=== PATIENT | female | born 1940 | race Asian ===

== ENCOUNTER 2019-07-04 11:17 | Emergency (ER) | payer MEDICARE, OTHER, SELFPAY ==
[2019-07-04 11:18] VITALS: BP 149/71; PULSE 88; RESP 16; TEMP 36.1; O2SAT 98; BMI 20.2
--- NOTE | 2019-07-04 11:54 | MRI_ITS ---
We are attempting to reach an attending provider to discuss findings. An addendum with communication details will be sent when the communication is complete. STUDY: MRI CERVICAL SPINE WITHOUT CONTRAST REASON FOR EXAM: Female, 78 years old. Neck pain. Arm pain. TECHNIQUE: Standardized fat and water weighted pulse sequences were obtained in the sagittal and axial planes. COMPARISON: None. FINDINGS: Moderate/severe craniocervical junction stenosis. Craniocervical junction measures approximately 6 mm in transverse diameter (sagittal image 9 series 2). Degenerative intact atlantoaxial and craniocervical junction. Odontoid intact. No acute fracture line. No dislocation. No cortical destruction. Cervical straightening. No significant scoliosis. Focal abnormal T2 cord signal behind the fused C5/6 vertebral bodies measuring approximately 7 mm in length (sagittal image 8 series 2). No additional regions of abnormal cord signal. Anterior surgical fusion extending from the C5-C7 vertebral bodies. Multilevel discectomy. Mild/moderate diffuse facet joint arthrosis. C2-3: Facet joint arthrosis. Severe left neural foraminal narrowing. Normal central canal. Normal right neural foramina. Shallow disc bulge. C3-4: Mild endplate spondylosis. Shallow disc bulge. Severe right and moderate left neural foramina narrowing. Minimal central canal narrowing. C4-5: Mild end plate spondylosis. Severe bilateral neural foramina narrowing. Disc bulge with moderate central canal narrowing. C5-6: Fused endplates. Mild posterior osseous ridging. Mild central canal narrowing. Moderate left and mild right neural from narrowing. C6-7: Fused endplates. Mild posterior osteophytic ridging. Mild central canal narrowing. Mild/moderate bilateral neural femoral narrowing. C7-T1: Shallow disc bulge. Minimal central canal narrowing. Moderate right and mild left neural femoral narrowing. Minimal grade 1 spondylolisthesis. Mild paraspinal muscle atrophy. Normal thyroid. Symmetric vascular flow voids. MRI/Spine Cervical (Routine) IMPRESSION: Focal C5-6 abnormal T2 cord signal (statistically myelomalacia; correlate prior imaging) Multilevel intervertebral disc disease with central canal narrowing predominating at C4-5 Moderate/severe craniocervical junction stenosis Multilevel moderate/severe neural femoral narrowing Cervical straightening with mild/moderate osteoarthritis and cervical fusion Electronically Signed: Clint Sargent DO at 15:44 EDT Tel , Service support ,
--- NOTE | 2019-07-04 11:56 | ED.VIS.GEN ---
History of Present Illness Chief Complaint: Other, Pain/Inj Detail of Chief Complaint: weakness/numbness Informant: Patient Onset: Weeks - 2 Context: Gradual Onset - And continuing to worsen Timing: Continuous Quality: Weakness Location: Arms and legs, worse on the left Current Severity: Moderate Maximum Severity: Moderate Worsened by: nothing Relieved by: nothing Associated Symptoms: Numbness left arm and left leg Narrative: No facial symptoms. Patient states she had an MRI 2 or 3 years ago that showed spinal cord compression in the C3-4 area, she is concerned that is worsening and is unable to get an MRI in a timely fashion, she feels like her weakness is worsening so she felt she had no choice but to come to the emergency department. She has had one fall without injury as a result of this in the last 2 weeks. She denies any neck or back pain, no recent injuries. She had a fusion in the C7-T1 area remotely. - Past Medical History (1) Hypertension Status: Chronic (2) Depression Status: Chronic Past Medical History - Allergies and Home Meds Allergies/Adverse Reactions: Allergies No Known Allergies Allergy (Verified 01/17/15 15:52) Primary Care Physician: Nina You MD [STAFF PHYSICIAN] - Doctors: Neurosurgery [facility] main Surgical History: - - Cervical spine fusion Lives: Spouse/ Significant Other Smoking Status: Former smoker Review of Systems General: Denies: Chills, Fever, Sweats Eyes: Denies: Visual changes - bilaterally, Diplopia ENT: Denies: Rhinorrhea, Sore throat Cardiovascular: Denies: Chest pain, Palpitations Respiratory: Denies: Dyspnea, Cough, Dyspnea on exertion Gastrointestinal: Denies: Abdominal pain, Nausea, Vomiting, Diarrhea, Melena, Hematochezia Genitourinary: Denies: Dysuria, Hematuria, Frequency Musculoskeletal: Denies: Neck pain, Back pain, Extremity Pain Skin: Denies: Rash, Wounds Neurological: Reports: Weakness, Numbness. Denies: Headache Physical Exam Vital Signs/Narrative: Vital Signs Temp Pulse Resp BP Pulse Ox 07/04/19 11:18 97 F L 88 16 149/71 H 98 Inital Vital Signs reviewed: Yes General: Well nourished, Well developed, No Acute Distress Head: Normocephalic, Atraumatic Eyes: Perrl, EOMI ENT: Moist mucous membranes, No rhinorrhea Neck: Supple, Nontender Cardiovascular: Regular rate, Regular rhythm, Murmur - 2/6 systolic Respiratory: No distress, CTA bilaterally, Chest nontender Abdomen: Soft, Nontender, Nondistended, Normal bowel sounds Back: Nontender, Normal Inspection. Negative for: CVA tenderness Extremities: Nontender, No edema Skin: Normal color, No rash, No Trauma Neurological: Alert, Oriented x3, Cranial nerves II-XII grossly intact, Normal DTR - No clonus. Toes downgoing bilaterally., Parasthesia - Left arm and left leg all the sensation intact, Weakness - 4+/5 strength right upper and right lower extremity, throughout all muscle groups. 4/5 strength throughout left upper and left lower extremity all muscle groups. Psychological: Normal affect, Tearful Diagnostic/Tx/Re-eval Clinical Impression(s) from Imaging Studies Cervical Spine MRI 07/04/19 11:54 IMPRESSION: Focal C5-6 abnormal T2 cord signal (statistically myelomalacia; correlate prior imaging) Multilevel intervertebral disc disease with central canal narrowing predominating at C4-5 Moderate/severe craniocervical junction stenosis Multilevel moderate/severe neural femoral narrowing Cervical straightening with mild/moderate osteoarthritis and cervical fusion Electronically Signed: Clint Sargent DO at 15:44 EDT Tel , Service support , - Medical Decision Making Concern here is for high-level cord compression given symptoms in all 4 extremities. She has had no respiratory symptoms. MRI is indicated, we were able to get it in the emergency department after a short observation period. It shows moderate-severe craniocervical junction stenosis, in addition to the other above findings. However, this is the most concerning finding, as if worse, could lead to paralysis and respiratory problems. At this time she is able to ambulate. I discussed with neurosurgery at [facility], where the patient was previously established and had prior imaging. They request that the patient be transferred to the emergency department at [facility] so that the neurosurgeon on-call can evaluate the patient clinically and review the imaging which we are not able to transmit electronically. Discussed with the patient and she is amenable to that plan. Accepted to the ED by Dr. Santillan ED Disposition - Plan for ED Patient: Disposition: [facility] - Main Diagnosis: Cervical stenosis of spinal canal, Weakness of both arms, Weakness of both legs Referrals: Nina You MD [STAFF PHYSICIAN] -
[2019-07-04 16:56] VITALS: BP 188/77; PULSE 85; RESP 16; O2SAT 99
[2019-07-04 18:30] VITALS: BP 188/77; PULSE 63; RESP 16; O2SAT 99
== END 2019-07-04 18:41 | disposition short-term general hospital (02) ==
PROVIDERS: Emergency Provider Emergency Medicine; Family Provider Family Medicine; PCP Family Medicine
DX: M48.02 Spinal stenosis, cervical region (principal); R53.1 Weakness; I10 Essential (primary) hypertension; F32.9 Major depressive disorder, single episode, unspecified; Z79.899 Other long term (current) drug therapy; Z87.891 Personal history of nicotine dependence
CPT/HCPCS: 72141; 99283; J7030

== ENCOUNTER 2019-08-06 19:17 | Inpatient (IN) | payer MEDICARE, OTHER, SELFPAY ==
[2019-08-06 19:20] VITALS: BP 124/62; PULSE 83; RESP 16; O2SAT 98
[2019-08-06 19:21] VITALS: BP 124/62; PULSE 86; RESP 16; TEMP 36.8; O2SAT 98; BMI 21.2
--- NOTE | 2019-08-06 20:31 | RAD_ITS ---
STUDY: X-RAY CHEST REASON FOR EXAM: Female, 79 years old. Injury TECHNIQUE: Single AP portable view of the chest. COMPARISON: February 06, 2016 FINDINGS: There is postoperative change of the cervical spine. There are skin lionel in the lower neck. There are monitoring devices. The lungs are clear and expanded. There is no demonstrated pleural abnormality. Normal size heart. Normal mediastinum and glory. Normal visualized pulmonary arteries. Normal visualized aortic arch and descending thoracic aorta. There is demineralization of the osseous structures. Normal visualized ribs, clavicles, and shoulders. There is no demonstrated abnormality of the visualized soft tissue structures of the upper abdomen. RAD/Chest 1 View (Portable) IMPRESSION: Degenerative changes, as described above. No demonstrated acute cardiopulmonary process. Electronically Signed: Joseluis Rolon MD at 20:52 EDT , Service support ,
--- NOTE | 2019-08-06 20:31 | CT_ITS ---
STUDY: CT BRAIN WITHOUT CONTRAST REASON FOR EXAM: Female, 79 years old. Fall hitting head. Patient passed out. Recent cervical spine surgery. RADIATION DOSAGE (If Supplied By Facility): CTDIvol = ( 44.99 ) mGy, DLP = ( 762.36 ) mGycm TECHNIQUE: Transaxial CT imaging of the brain was performed without administration of intravenous contrast material. Individualized dose optimization techniques were used for this CT. COMPARISON: No relevant priors. FINDINGS: Normal soft tissue structures. Normal calvarium. There is postoperative change of the cervical spine seen on the vaccine specialist projection. There are skin lionel. There is mild cerebral atrophy with widening of the extra-axial spaces and ventricular dilatation. There are areas of decreased attenuation within the white matter tracts of the supratentorial brain, consistent with microvascular disease changes. There are small punctate calcifications of the basal ganglia which are seen in the aging brain as a normal variant. Normal brainstem. Normal cerebellum. There is no intracranial hemorrhage. There are no findings of an acute ischemic infarction. Normal visualized paranasal sinuses. CT/Brain/Head without Contrast IMPRESSION: Chronic involutional changes of the brain. No hemorrhage. Electronically Signed: Joseluis Rolon MD at 21:35 EDT , Service support ,
--- NOTE | 2019-08-06 20:31 | CT_ITS ---
STUDY: CT CERVICAL SPINE WITHOUT CONTRAST REASON FOR EXAM: Female, 79 years old. Fall hitting head. Recent surgery. RADIATION DOSAGE (If Supplied By Facility): CTDIvol = ( 12.34 ) mGy, DLP = ( 268.97 ) mGycm TECHNIQUE: High resolution transaxial imaging was performed without contrast material. Sagittal and coronal images were reconstructed. Individualized dose optimization techniques were used for this CT. COMPARISON: None FINDINGS: Normal craniovertebral junction. There are degenerative changes of the anterior atlantoaxial articulation. Normal odontoid process. There is straightening of the normal cervical lordosis. There is anterior cervical fusion from C5 to C7 with hardware. There is posterior cervical fusion from C3 through C6 with hardware. Normal vertebral bodies. C2-3: Normal endplates. Normal disc height and morphology. Normal central canal and intervertebral neuroforamina. There is facet spurring. C3-4: Posterior fusion with laminectomy. Facet spurring. Right foraminal narrowing. C4-5: Posterior fusion and laminectomy. Facet spurring. Mild right foraminal narrowing. C5-6: Anterior and posterior fusion with laminectomy. Facet spurring. C6-7: Anterior fusion. Mild facet spurring. C7-T1: Disc bulge and spurring. Facet spurring. There is postoperative change in the soft tissues. There are posterior skin lionel. CT/Spine Cervical without Contras IMPRESSION: Postoperative and degenerative changes. No acute fracture seen. Electronically Signed: Joseluis Rolon MD at 21:47 EDT , Service support ,
--- NOTE | 2019-08-06 20:32 | EKG12_ITS ---
Test Reason : SYNCOPE Blood Pressure : / mmHG Vent. Rate : 085 BPM Atrial Rate : 085 BPM P-R Int : 170 ms QRS Dur : 080 ms QT Int : 402 ms P-R-T Axes : 080 009 056 degrees QTc Int : 478 ms Normal sinus rhythm Normal ECG Confirmed by KENNETH BALLESTEROS, JOSÉ MIGUEL ([id number]), image editor CHARMAINE CISNEROS ([id number]) on 08/08/2019 10:15:38 A M Referred By: KALEN Confirmed By:EDELMIRA COOPER MD
[2019-08-06 20:41] LABS: Bedside Glucose 153 mg/dL (70-110)
--- NOTE | 2019-08-06 20:42 | ED.VIS.GEN ---
History of Present Illness Chief Complaint: Syncope Informant: Patient, Family Onset: Today Context: Sudden Onset Narrative: Patient is a 79-year-old female is one-week status post neck surgery at [facility] presenting after syncopal episode. Patient states she was cooking dinner when she suddenly felt lightheaded and fell to the ground. states that he saw her fall and she did hit her head quite hard. Patient woke up shortly after. Patient not had any seizure activity. Patient states she has a headache now but otherwise feels fine. Patient has been wearing a neck brace since her surgery. She states she is been sleeping a lot since her surgery. She has been taking oxycodone for pain. She does have a history of systolic murmur. She denies any other complaints at this time. Past Medical History - Allergies and Home Meds Allergies/Adverse Reactions: Allergies No Known Allergies Allergy (Verified 01/17/15 15:52) Primary Care Physician: Flavio Diaz III, MD [Primary Care Provider] - Surgical History: - - Cervical spine fusion Smoking Status: Never smoker Physical Exam Vital Signs/Narrative: Vital Signs Temp Pulse Resp BP Pulse Ox 08/06/19 19:21 98.2 F 86 16 124/62 H 98 08/06/19 19:20 83 16 124/62 H 98 Inital Vital Signs reviewed: Yes General: Well nourished, Well developed, No Acute Distress Head: Normocephalic, Atraumatic Eyes: Perrl, EOMI ENT: Moist mucous membranes, No rhinorrhea Neck: Supple, - - Midline lionel, immobilized in a c-collar Cardiovascular: Regular rate, Regular rhythm, Murmur - systolic Respiratory: No distress, CTA bilaterally, Chest nontender Abdomen: Soft, Nontender, Nondistended, Normal bowel sounds Back: Nontender, Normal Inspection Extremities: Nontender, No edema Skin: Normal color, No rash Neurological: Alert, Oriented x3, Cranial nerves II-XII grossly intact, Normal Strength, Normal Sensation Psychological: Normal affect, Normal Mood Diagnostic/Tx/Re-eval Chest X-Ray - ED: 1 View, Read by ED Physician, Read by Radiologist, No Acute Disease Diagnostic Data Brain CT 08/06/19 20:31 IMPRESSION: Chronic involutional changes of the brain. No hemorrhage. Electronically Signed: Joseluis Rolon MD at 21:35 EDT , Service support , Cervical Spine CT 08/06/19 20:31 IMPRESSION: Postoperative and degenerative changes. No acute fracture seen. Electronically Signed: Joseluis Rolon MD at 21:47 EDT , Service support , Chest X-Ray 08/06/19 20:31 IMPRESSION: Degenerative changes, as described above. No demonstrated acute cardiopulmonary process. Electronically Signed: Joseluis Rolon MD at 20:52 EDT , Service support , Chest CTA 08/06/19 21:55 IMPRESSION: CTA chest examination, without a demonstrated pulmonary embolism or arterial dissection. Electronically Signed: Joseluis Rolon MD at 23:00 EDT , Service support , Laboratory Results - last 24 hr 08/06/19 08/06/19 08/06/19 20:37 20:54 20:54 WBC 7.6 RBC 3.93 L Hgb 9.5 L Hct 29.6 L MCV 75.3 L MCH 24.2 L MCHC 32.1 RDW Std Deviation 34.5 L RDW Coeff of Jennifer 12.7 Plt Count 299 MPV 9.7 Immature Gran % (Auto) 0.500 Neut % (Auto) 81.9 H Lymph % (Auto) 7.6 L Marshall % (Auto) 9.5 Eos % (Auto) 0.1 Baso % (Auto) 0.4 Absolute Neuts (auto) 6.2 Absolute Lymphs (auto) 0.58 L Nucleated RBC % 0 Differential Comment SCANNED Hypochromasia 1+ D-Dimer Quant (PE/DVT) Sodium 130 L Potassium 3.4 L Chloride 92 L Carbon Dioxide 30.0 Anion Gap 8 BUN 20 H Creatinine 0.80 Estim Creat Clear Calc 42.85 Est GFR (MDRD) Af Amer 89 Est GFR (MDRD) Non-Af 74 BUN/Creatinine Ratio 25.0 H Glucose 155 H Calcium 8.9 Troponin I < 0.015 Urine Color Urine Clarity Urine pH Ur Specific Providence Urine Protein Urine Glucose (UA) Urine Ketones Urine Occult Blood Urine Nitrite Urine Bilirubin Urine Urobilinogen Ur Leukocyte Esterase Urine RBC Urine WBC Ur Squamous Epith Cells Urine Bacteria Urine Mucus POC Glucose 153 H 08/06/19 08/06/19 20:54 22:55 WBC RBC Hgb Hct MCV MCH MCHC RDW Std Deviation RDW Coeff of Jennifer Plt Count MPV Immature Gran % (Auto) Neut % (Auto) Lymph % (Auto) Marshall % (Auto) Eos % (Auto) Baso % (Auto) Absolute Neuts (auto) Absolute Lymphs (auto) Nucleated RBC % Differential Comment Hypochromasia D-Dimer Quant (PE/DVT) 2.20 H* Sodium Potassium Chloride Carbon Dioxide Anion Gap BUN Creatinine Estim Creat Clear Calc Est GFR (MDRD) Af Amer Est GFR (MDRD) Non-Af BUN/Creatinine Ratio Glucose Calcium Troponin I Urine Color Yellow Urine Clarity Clear Urine pH 7.0 Ur Specific [place] 1.005 Urine Protein Negative Urine Glucose (UA) Normal Urine Ketones 5 H Urine Occult Blood Negative Urine Nitrite Negative Urine Bilirubin Negative Urine Urobilinogen Normal Ur Leukocyte Esterase Negative Urine RBC 0 SEEN Urine WBC 0 SEEN Ur Squamous Epith Cells 0 SEEN Urine Bacteria 0 SEEN Urine Mucus 0 SEEN POC Glucose - Rhythm Strip Rhythm Strip: Sinus Rhythm Rate: 85 Ectopy: None - EKG Initial EKG Interpretation: Sinus Rhythm, - - Normal intervals Normal ST segments Normal EKG Prior: Unchanged - Medical Decision Making She is a 79-year-old female that is evaluated after syncopal episode. She appears nontoxic and in no acute distress. She is complaining of a headache however this resolves in the ER. Orthostatic signs are normal. She does have small ketones in her urine. Patient is given IV fluids. She has a normal neurologic exam. CT of the brain and C-spine do not show any acute process. She does have a recent surgical changes on her CT C-spine. She is mildly anemic. This likely secondary to her recent postoperative status. She denies any black or bloody stools. She has no active signs of bleeding while in the emergency room. Patient is not having signs of infection. She is a very mild hypokalemia and hypokalemia, but this does not explain her syncopal episode. D-dimer is significantly elevated. CTPE does not show any acute process. Patient states she does not feel comfortable going home. She will be admitted observation for further evaluation of the syncopal episode. She is agreeable to this plan. Patient is starting to have some postoperative pain while in the emergency room. As she is given her home dose of oxycodone. Patient stable for the general medical floor at time of disposition ED Disposition - Plan for ED Patient: Disposition: Acute Care Hospital [facility] Diagnosis: Syncope and collapse, Closed head injury, Anemia Referrals: Flavio Diaz III, MD [Primary Care Provider] -
[2019-08-06 20:54] VITALS: BP 116/64; PULSE 80; RESP 17; O2SAT 99
[2019-08-06 21:00] VITALS: BP 125/65; PULSE 79; RESP 16; O2SAT 100
[2019-08-06] MEDS: 0.9% Normal Saline 1,000 ML 1000 ML IV (21:00)
[2019-08-06 21:06] LABS: Absolute Lymphocyte Count 0.58 X10^3/uL (0.83-4.51); Absolute Neutrophil Count 6.2 X10^3/uL (2.0-7.7); Basophil# 0.03 X10^3/uL; Basophil% 0.4 % (0-1); Eosinophil# 0.01 X10^3/uL; Eosinophils% 0.1 % (0-5); Hematocrit 29.6 % (37-47); Hemoglobin 9.5 g/dL (12.0-15.0); Lymphocyte # 0.58 X10^3/ul (4.0); Lymphocyte % 7.6 % (19-41); Mean Corp Hgb Conc 32.1 g/dL (32-36); Mean Corpuscular Hgb 24.2 pg (27.0-32.0); Mean Corpuscular Volume 75.3 fL (81-99); Mean Platelet Vol. 9.7 fl (6.2-12.0); Monocyte# 0.72 X10^3/uL; Monocyte% 9.5 % (0-10); NRBC Flagged by Analyzer 0 % (0-5); Neutrophil # 6.21 X10^3/uL (2.7-7.7); Neutrophil % 81.9 % (47-70); POSITIVE DIFFERENTIAL YES; Platelet Count 299 K/mm3 (150-450); RBC Distribution Width CV 12.7 % (11.6-14.6); RBC Distribution Width SD 34.5 fl (35.1-43.9); Red Blood Count 3.93 M/mm3 (4.2-5.4); White Blood Count 7.6 K/mm3 (4.4-11.0)
[2019-08-06 21:07] LABS: Differential Indicated SCAN CRITERIA MET
[2019-08-06 21:20] VITALS: BP 120/59; BP 127/66; BP 139/70; PULSE 80; PULSE 85
[2019-08-06 21:21] LABS: Anion Gap 8 (5-15); BUN 20 mg/dL (7-18); Calcium,Total 8.9 mg/dL (8.5-10.1); Chloride 92 mmol/L (98-107); EST Glomerular Filtration Rate 74 mL/min (>60); Est Glom Filt Rate - Afr Amer 89 mL/min (>60); Estimated Creatinine Clearance 42.85 ml/min; Glucose 155 mg/dL (74-106); Potassium 3.4 mmol/L (3.5-5.1); Sodium Level 130 mmol/L (136-145)
[2019-08-06 21:35] LABS: Differential Comment SCANNED; Hypochromasia 1+
--- NOTE | 2019-08-06 21:55 | CT_ITS ---
STUDY: CTA CHEST REASON FOR EXAM: Female, 79 years old. Syncope. Elevated d-dimer. Recent cervical spine surgery. RADIATION DOSAGE (If Supplied By Facility): CTDIvol = ( 4.76 ) mGy, DLP = ( 111.41 ) mGycm TECHNIQUE: The examination was performed with the intravenous administration of IV 75mL [id number] [id number]. Post-processing of the angiographic images was performed, with multiplanar reformation and 3D reconstruction. Individualized dose optimization techniques were used for this CT. COMPARISON: Chest x-ray FINDINGS: Normal enhancement of the main pulmonary artery and right and left pulmonary arteries. Normal enhancement of the bilateral peripheral pulmonary arteries. There is no demonstrated pulmonary embolism. There is atherosclerotic calcification of the aortic arch with tortuosity. There is no demonstrated aortic dissection. There are calcifications of the coronary arteries. Normal mediastinum. Normal hilar regions. Normal visualized trachea and bronchi. The lungs are well expanded. Lower lung linear increased opacities with scarring or atelectasis. Normal pleura. Normal chest wall structures. There are degenerative changes of thoracic spine. Postoperative changes of the cervical spine. Normal visualized upper abdomen. CT/CTA Chest W/WO Contrast IMPRESSION: CTA chest examination, without a demonstrated pulmonary embolism or arterial dissection. Electronically Signed: Joseluis Rolon MD at 23:00 EDT , Service support ,
[2019-08-06 23:07] LABS: Bacteria 0 SEEN /hpf (None Seen); Mucous, Urine 0 SEEN /hpf (<or=2+); Red Blood Cells-Urine 0 SEEN /hpf (0-5); Squamous Epithelial Cells - UA 0 SEEN /hpf (5-10); White Blood Cells 0 SEEN /hpf (0-5)
[2019-08-06 23:08] LABS: Color, Urine Yellow (Yellow); Glucose, Dipstick Normal (Normal); Ketone-Dipstick 5 mg/dl (Negative); Leukocyte Esterase-Dipstick Negative /ul (Negative); Nitrite-Dipstick Negative (Negative); Occult Blood-Urine Negative /ul (Negative); Protein-Dipstick Negative (Negative); Specific Gravity, Urine 1.005 (1.002-1.030); Urine Bilirubin Dipstick Negative (Negative); Urine Clarity Clear (Clear); Urine Urobilinogen Normal (Normal)
--- NOTE | 2019-08-06 23:43 | HP.PCM_ITS ---
Problem List (1) Hypertension Status: Chronic (2) Depression Status: Chronic (3) Syncope and collapse Status: Acute (4) Closed head injury Status: Acute (5) Anemia Status: Acute History of Present Illness Date of Admission: 08/06/19 Chief Complaint: Syncope The patient is a 79 year old F with PMH as below who presents to the hospital after having an episode of syncope at home. She states that about a week ago she had a cervical spine fusion at the [facility] for C3-C4, which is in addition to a previous surgery for C5-7. She states that today she was sitting up at the sink and she passed out. Per the she is sort of turned and then just dropped and did hit her head fairly hard. She denies any neck pain worse than normal, and she has no loss of function in either arm or either leg. Per the she recovered fairly quickly and did not have any seizure-like activity or postictal phase. Also she did not have any deficits after she woke up. In the ER her work-up was unremarkable, she had a CT scan of her head which was negative and the CT scan of her C-spine was also unremarkable. She states that she has some loss of function in her left upper extremity secondary to her C3-C4 disc issue. She denies any feelings of a racing heart or palpitations p rior to her fall. She has been taking narcotics since surgery which is a new medication for her. In the ER initial orthostatic vital signs were unremarkable. She was a little bit anemic to 9.5, but this is likely postsurgical how she is also hyponatremic and hypokalemic. Because her d-dimer was elevated which is likely postsurgical, she did undergo a CTA of her chest which was negative for PE. Past Medical History Past Medical History (Chronic Problems): Chronic Problems Hypertension (Chronic) Depression (Chronic) Allergies No Known Allergies Allergy (Verified 01/17/15 15:52) Home Medications: Ambulatory Orders Medication Instructions Recorded Amlodipine Besylate 2.5 mg PO DAILY 07/04/19 Benazepril HCl 10 mg PO BID 07/04/19 Hydrochlorothiazide [Hctz] 25 mg PO DAILY 07/04/19 Magnesium 400 mg PO DAILY 07/04/19 Venlafaxine HCl [Venlafaxine HCl 150 mg PO DAILY 07/04/19 ER] Cholecalciferol (Vitamin D3) 2,000 unit PO DAILY 08/06/19 [Vitamin D3] Docusate Sodium [Colace] 100 mg PO BID 08/06/19 Methocarbamol [Robaxin] 500 mg PO 4X/DAY PRN PRN 08/06/19 Oxycodone [Oxyir] 5 mg PO Q4H PRN PRN 08/06/19 Thiamine Mononitrate (Vit B1) 500 mg PO 08/07/19 [Vitamin B-1] Surgical History: - - Cervical spine fusion Smoking Status: Never smoker Alcohol: None Drugs: None - *Family History Maternal History Items: Cancer, Heart Disease Paternal History Items: Stroke Review of Systems Constitutional: Denies: Chills, Fever, Weight Change HEENT: Reports: Head Aches. Denies: Sinus Congestion, Sinus Drainage Cardiovascular: Denies: Chest Pain, Palpitations Respiratory: Denies: Cough, Shortness of breath at rest, Sputum production Gastrointestinal: Denies: Abdominal Pain, Nausea, Vomiting Genitourinary: Denies: Dysuria Musculoskeletal: Denies: Joint Pain, Joint Tenderness Skin: Denies: Rash, Wounds Neurological: Denies: Numbness, Tingling, Focal weakness Psychiatric: Denies: Anxiety, Depression Hematologic/ Lymphatic: Denies: Easy Bruising, Easy Bleeding VTE Information - Inpt Only VTE Present on Admission: No Patient Problems: Active and Suspected Problems Syncope and collapse (Acute) Closed head injury (Acute) Anemia (Acute) - Physical Exam General: Alert, Oriented x3, Cooperative, No apparent distress HEENT: Atraumatic, PERRLA, EOMI, Normocephalic Oral: Moist Mucosa Neck: Supple, No JVD Lungs: Clear to auscultation, Normal air movement, No rhonchi, No wheeze, No rales Cardiovascular: Regular rate, Regular Rhythm, Normal S1, Normal S2, No murmurs Abdomen: Soft, Non Tender, Non-Distended, No Hepato-splenomegaly Extremities: No edema, Capillary Refill Less than 3 Seconds Skin: No rashes, No breakdown Neurological: Neuro grossly intact, Sensory exam intact to light touch and pain Psych/Mental Status: Normal Affect, Appropriate Vital Signs Temp Pulse Resp BP Pulse Ox 98.2 F 80 16 120/59 L 100 08/06/19 19:21 08/06/19 21:20 08/06/19 21:00 08/06/19 21:20 08/06/19 21:00 Oxygen Delivery Method Room Air Weight: 104 lb 15.04 oz Body Mass Index (BMI) 21.2 Finger Stick Blood Glucose 153 Intake and Output for Last 24 Hours 08/04/19 08/05/19 08/06/19 23:59 23:59 23:59 Intake Total 1000 / 1000 Balance 1000 / 1000 Laboratory Tests Past 24 Hrs 08/06/19 08/06/19 08/06/19 20:54 20:54 20:54 WBC 7.6 RBC 3.93 L Hgb 9.5 L Hct 29.6 L MCV 75.3 L MCH 24.2 L MCHC 32.1 RDW Std Deviation 34.5 L RDW Coeff of Jennifer 12.7 Plt Count 299 MPV 9.7 Immature Gran % (Auto) 0.500 Neut % (Auto) 81.9 H Lymph % (Auto) 7.6 L [place]ary % (Auto) 9.5 Eos % (Auto) 0.1 Baso % (Auto) 0.4 Absolute Neuts (auto) 6.2 Absolute Lymphs (auto) 0.58 L Nucleated RBC % 0 Differential Comment SCANNED Hypochromasia 1+ D-Dimer Quant (PE/DVT) 2.20 H* Sodium 130 L Potassium 3.4 L Chloride 92 L Carbon Dioxide 30.0 Anion Gap 8 BUN 20 H Creatinine 0.80 Estim Creat Clear Calc 42.85 Est GFR (MDRD) Af Amer 89 Est GFR (MDRD) Non-Af 74 BUN/Creatinine Ratio 25.0 H Glucose 155 H Calcium 8.9 Troponin I < 0.015 Urine Color Urine Clarity Urine pH Ur Specific [place] Urine Protein Urine Glucose (UA) Urine Ketones Urine Occult Blood Urine Nitrite Urine Bilirubin Urine Urobilinogen Ur Leukocyte Esterase Urine RBC Urine WBC Ur Squamous Epith Cells Urine Bacteria Urine Mucus 08/06/19 22:55 WBC RBC Hgb Hct MCV MCH MCHC RDW Std Deviation RDW Coeff of Jennifer Plt Count MPV Immature Gran % (Auto) Neut % (Auto) Lymph % (Auto) [place] % (Auto) Eos % (Auto) Baso % (Auto) Absolute Neuts (auto) Absolute Lymphs (auto) Nucleated RBC % Differential Comment Hypochromasia D-Dimer Quant (PE/DVT) Sodium Potassium Chloride Carbon Dioxide Anion Gap BUN Creatinine Estim Creat Clear Calc Est GFR (MDRD) Af Amer Est GFR (MDRD) Non-Af BUN/Creatinine Ratio Glucose Calcium Troponin I Urine Color Yellow Urine Clarity Clear Urine pH 7.0 Ur Specific [place] 1.005 Urine Protein Negative Urine Glucose (UA) Normal Urine Ketones 5 H Urine Occult Blood Negative Urine Nitrite Negative Urine Bilirubin Negative Urine Urobilinogen Normal Ur Leukocyte Esterase Negative Urine RBC 0 SEEN Urine WBC 0 SEEN Ur Squamous Epith Cells 0 SEEN Urine Bacteria 0 SEEN Urine Mucus 0 SEEN POC Glucose 08/06/19 20:37 POC Glucose 153 H Assessment/Plan All Active Problems Syncope and collapse (Acute) Closed head injury (Acute) Anemia (Acute) 1. Syncope -This is likely secondary to medication use -Monitor on telemetry and obtain an echo in the morning - will call the neurosurgeon and let him know about the fall -Orthostatic vital signs in the ER were negative, will repeat -Continue with IV fluids at 100 cc/h 2. This spinal fusion of her cervical spine -She is on Robaxin, oxycodone both of which could contributed to her fall -We will hold both medications and monitor 3. HTN/hyponatremia/hypokalemia -She is on Norvasc, benazepril, hydrochlorothiazide -Hold these medications for now as she is here for syncope, also will replace her potassium which is depleted secondary to the above medications 4. Anxiety/depression -Stable -Continue with Effexor DVT: SCDs Code Visit OBSV E&M: [id number] Initial observation care L2
[2019-08-06] MEDS: oxyCODONE 5 MG Tablet PO (23:48)
[2019-08-07] VITALS (13 sets, daily range): BP systolic 121–173; BP diastolic 56–79; PULSE 65–87; RESP 14–18; TEMP 36.7–37.1; O2SAT 97–99; BMI 20.7; BMI 20.8
[2019-08-07] MEDS: 0.9% Normal Saline 1,000 ML 100 ML IV ×3 (02:00→22:12)
--- NOTE | 2019-08-07 05:55 | ECHOD_ITS ---
Reason For Study: Syncope Procedure This was a 2D Doppler, Color Flow transthoracic echocardiogram. Exam performed portable in patient room. Left Ventricle Normal LV size. Left ventricular systolic function is hyperdynamic. The estimated ejection fraction is >70 %. Diastolic function is indeterminate. No regional wall motion abnormalities noted. Right Ventricle Normal RV size. Normal systolic function. Atria Normal left atrium. Normal right atrium. No doppler evidence for ASD. Mitral Valve There is no stenosis. No mitral valve insufficiency. Tricuspid Valve There is no tricuspid stenosis. Unable to estimate RV systolic pressure due to insufficient tricuspid regurgitant envelope. Trivial tricuspid valve insufficiency. Aortic Valve Aortic sclerosis, no stenosis. There is no aortic stenosis. No aortic valve insufficiency. Pulmonic Valve There is no pulmonic valvular stenosis. No pulmonic valve insufficiency. Great Vessels Normal aortic root. Pericardium/Pleural No pericardial effusion. MMode/2D Measurements & Calculations LVIDd: 3.7 cm IVSd: 1.2 cm LA dimension: 2.7 cm LVIDs: 1.6 cm LVPWd: 1.1 cm FS: 56.3 % LAV(MOD-bp): 40.5 ml LA A4 area: 14.6 cm2 RA A4 area: 13.2 cm2 LAV(MOD-bp) Indexed: 29.1 ml/m2 LAV(MOD-sp2): 41.1 ml LAV(MOD-sp4): 36.3 ml Time Measurements MV dec time: 0.22 sec Doppler Measurements & Calculations MV E max abel: 111.1 cm/sec Lat Peak E' Abel: 8.5 cm/sec Med Peak E' Abel: 6.4 cm/sec MV A max abel: 131.6 cm/sec E/E' lat: 13.0 E/E' med: 17.4 MV E/A: 0.84 MV V2 max: 170.5 cm/sec MV P1/2t max abel: 143.5 cm/sec Ao V2 max: 162.8 cm/sec MV max P.6 mmHg MV P1/2t: 52.2 msec Ao max P.6 mmHg MV V2 mean: 93.5 cm/sec MV dec slope: 804.9 cm/sec2 MV mean P.1 mmHg MVA(P1/2t): 4.2 cm2 MV V2 VTI: 37.3 cm LV V1 max: 108.4 cm/sec PA V2 max: 146.4 cm/sec LV V1 max P.7 mmHg Interpretation Summary Left ventricular systolic function is hyperdynamic. Diastolic function is indeterminate. Aortic sclerosis, no stenosis. The estimated ejection fraction is >70 %. Ordering Physician: Ritesh Christy Referring Physician: CHRISTIAN Diaz M.D. Performed By: Steven Scott RCS
[2019-08-07 06:29] LABS: Absolute Lymphocyte Count 0.95 X10^3/uL (0.83-4.51); Absolute Neutrophil Count 4.8 X10^3/uL (2.0-7.7); Basophil# 0.02 X10^3/uL; Basophil% 0.3 % (0-1); Eosinophil# 0.03 X10^3/uL; Eosinophils% 0.4 % (0-5); Hematocrit 28.9 % (37-47); Hemoglobin 9.2 g/dL (12.0-15.0); Lymphocyte # 0.95 X10^3/ul (4.0); Lymphocyte % 14.2 % (19-41); Mean Corp Hgb Conc 31.8 g/dL (32-36); Mean Corpuscular Hgb 24.1 pg (27.0-32.0); Mean Corpuscular Volume 75.9 fL (81-99); Mean Platelet Vol. 10.1 fl (6.2-12.0); Monocyte# 0.88 X10^3/uL; Monocyte% 13.1 % (0-10); NRBC Flagged by Analyzer 0 % (0-5); Neutrophil % 71.6 % (47-70); Platelet Count 306 K/mm3 (150-450); RBC Distribution Width CV 12.9 % (11.6-14.6); RBC Distribution Width SD 35.4 fl (35.1-43.9); Red Blood Count 3.81 M/mm3 (4.2-5.4); White Blood Count 6.7 K/mm3 (4.4-11.0)
[2019-08-07 06:55] LABS: ALB/GLOB Ratio 0.7 RATIO (0.9-2.4); AST(SGOT) 15 U/L (15-37); Alanine Aminotransfer ALT/SGPT 14 U/L (13-56); Albumin, Serum 2.9 g/dL (3.2-5.0); Alkaline Phosphatase 69 U/L (45-117); Anion Gap 4 (5-15); BUN 12 mg/dL (7-18); Calcium,Total 8.7 mg/dL (8.5-10.1); Chloride 102 mmol/L (98-107); EST Glomerular Filtration Rate 126 mL/min (>60); Est Glom Filt Rate - Afr Amer 153 mL/min (>60); Estimated Creatinine Clearance 33.64 ml/min; Glucose 119 mg/dL (74-106); Potassium 4.4 mmol/L (3.5-5.1); Protein, Total 6.9 g/dL (6.4-8.2); Sodium Level 134 mmol/L (136-145)
[2019-08-07] MEDS: Venlafaxine XR 150 MG Capsule PO (10:14)
[2019-08-07] MEDS: Acetaminophen 325 MG Tablet 650 MG PO (10:14)
[2019-08-07] MEDS: Docusate Sodium 100 MG Capsule PO ×2 (10:14→21:18)
--- NOTE | 2019-08-07 15:41 | PN_ITS ---
Patient Problems: Active and Suspected Problems Syncope and collapse (Acute) Closed head injury (Acute) Anemia (Acute) Subjective: Patient seen and examined. Intermittent visual hallucinations and confusion. Patient states this is new in the last 2 days. Denies other current symptoms. - Physical Exam General: Alert, Cooperative, No apparent distress, Confused HEENT: Atraumatic, PERRLA, EOMI, Normocephalic Neck: Supple, No JVD, Negative Carotid Bruits Lungs: Clear to auscultation, Normal air movement Cardiovascular: Regular rate, Regular Rhythm, Normal S1, Normal S2, No murmurs Abdomen: Bowel Sounds Present, Soft, Non Tender, Non-Distended Extremities: No clubbing, No cyanosis, No edema, Capillary Refill Less than 3 Seconds Skin: No rashes, No breakdown, - - Cervical postoperative lionel intact without evidence of infection. Musculoskeletal: No Tenderness to Palpation of Joints or Extremities Neurological: Cranial nerves II-XII grossly intact, Neuro grossly intact Psych/Mental Status: Normal Affect, Appropriate Vital Signs Temp Pulse Resp BP Pulse Ox 98.4 F 78 14 142/61 H 99 08/07/19 09:59 08/07/19 11:00 08/07/19 09:59 08/07/19 09:59 08/07/19 09:59 Oxygen Delivery Method Room Air Weight: 103 lb Body Mass Index (BMI) 20.7 Finger Stick Blood Glucose 153 Orthostatic Vital Signs Start: 08/07/19 05:28 Freq: q24h Status: Active Protocol: Activity Type Activity Date Activity User E-Sign Co-Sign Detail Recorded Client Recorded Date Recorded By Document 08/07/19 05:28 [id number] 08/07/19 05:41 8 08/07/19 05:28 Orthostatic Vitals Standing -Blood Pressure (90/60-120/80) 121/56 H -Extremity Use Right Arm -Pulse Rate (60-100) 80 Sitting -Blood Pressure (90/60-120/80) 133/60 H -Extremity Use Right Arm -Pulse Rate (60-100) 77 Lying -Blood Pressure (90/60-120/80) 121/59 H -Extremity Use Right Arm -Pulse Rate (60-100) 75 Intake and Output for Last 24 Hours 08/05/19 08/06/19 08/07/19 23:59 23:59 23:59 Intake Total 1000 / 1000 1465 / 1465 Balance 1000 / 1000 1465 / 1465 Laboratory Tests Past 24 Hrs 08/06/19 08/06/19 08/06/19 20:54 20:54 20:54 WBC 7.6 RBC 3.93 L Hgb 9.5 L Hct 29.6 L MCV 75.3 L MCH 24.2 L MCHC 32.1 RDW Std Deviation 34.5 L RDW Coeff of Jennifer 12.7 Plt Count 299 MPV 9.7 Immature Gran % (Auto) 0.500 Neut % (Auto) 81.9 H Lymph % (Auto) 7.6 L [place] % (Auto) 9.5 Eos % (Auto) 0.1 Baso % (Auto) 0.4 Absolute Neuts (auto) 6.2 Absolute Lymphs (auto) 0.58 L Nucleated RBC % 0 Differential Comment SCANNED Hypochromasia 1+ D-Dimer Quant (PE/DVT) 2.20 H* Sodium 130 L Potassium 3.4 L Chloride 92 L Carbon Dioxide 30.0 Anion Gap 8 BUN 20 H Creatinine 0.80 Estim Creat Clear Calc 42.85 Est GFR (MDRD) Af Amer 89 Est GFR (MDRD) Non-Af 74 BUN/Creatinine Ratio 25.0 H Glucose 155 H Calcium 8.9 Total Bilirubin AST ALT Alkaline Phosphatase Troponin I < 0.015 Total Protein Albumin Globulin Albumin/Globulin Ratio Urine Color Urine Clarity Urine pH Ur Specific [place] Urine Protein Urine Glucose (UA) Urine Ketones Urine Occult Blood Urine Nitrite Urine Bilirubin Urine Urobilinogen Ur Leukocyte Esterase Urine RBC Urine WBC Ur Squamous Epith Cells Urine Bacteria Urine Mucus 08/06/19 08/07/19 08/07/19 22:55 06:00 06:00 WBC 6.7 RBC 3.81 L Hgb 9.2 L Hct 28.9 L MCV 75.9 L MCH 24.1 L MCHC 31.8 L RDW Std Deviation 35.4 RDW Coeff of Jennifer 12.9 Plt Count 306 MPV 10.1 Immature Gran % (Auto) 0.400 Neut % (Auto) 71.6 H Lymph % (Auto) 14.2 L [place] % (Auto) 13.1 H Eos % (Auto) 0.4 Baso % (Auto) 0.3 Absolute Neuts (auto) 4.8 Absolute Lymphs (auto) 0.95 Nucleated RBC % 0 Differential Comment Hypochromasia D-Dimer Quant (PE/DVT) Sodium 134 L Potassium 4.4 Chloride 102 Carbon Dioxide 28.0 Anion Gap 4 L BUN 12 Creatinine 0.50 L Estim Creat Clear Calc 33.64 Est GFR (MDRD) Af Amer 153 Est GFR (MDRD) Non-Af 126 BUN/Creatinine Ratio 24.0 H Glucose 119 H Calcium 8.7 Total Bilirubin 0.40 AST 15 ALT 14 Alkaline Phosphatase 69 Troponin I Total Protein 6.9 Albumin 2.9 L Globulin 4.0 Albumin/Globulin Ratio 0.7 L Urine Color Yellow Urine Clarity Clear Urine pH 7.0 Ur Specific [place] 1.005 Urine Protein Negative Urine Glucose (UA) Normal Urine Ketones 5 H Urine Occult Blood Negative Urine Nitrite Negative Urine Bilirubin Negative Urine Urobilinogen Normal Ur Leukocyte Esterase Negative Urine RBC 0 SEEN Urine WBC 0 SEEN Ur Squamous Epith Cells 0 SEEN Urine Bacteria 0 SEEN Urine Mucus 0 SEEN POC Glucose 08/06/19 20:37 POC Glucose 153 H Medical Necessity - Tobacco Use Smoking Status: Never smoker Assessment/Plan All Active Problems Syncope and collapse (Acute) Closed head injury (Acute) Anemia (Acute) 1. Acute encephalopathy with visual hallucinations-unclear etiology. reports history of dementia although no history of behavioral disturbances, hallucinations or notable confusion. Urinalysis negative. Chest x-ray unremarkable. Afebrile, no leukocytosis. Home Robaxin and OxyIR regimen on hold. Scheduled Tylenol 1000 mg every 8 hours. Obtain [facility] records. Consult neurology. 2. Syncope-troponin negative. Orthostatic vitals negative. Echocardiogram demonstrated EF 70%. Possibly vasovagal secondary to pain/narcotic regimen? 3. Recent cervical spine surgery with spinal fusion-patient reports this was completed 1 week ago at [facility]. Cervical spine CT shows postoperative and degenerative changes. No acute abnormality. [place] intact. No evidence of infection. 4. Microcytic anemia-unknown baseline. Trend CBC. Complete iron studies. 5. Hypertension-continue VARSHA inhibitor, amlodipine regimen. HCTZ on hold. 6. Anxiety/depression-continue Effexor regimen. DVT prophylaxis- SCDs This patient was seen by JONATHAN Morfin under the supervision of Dr. Reed.
[2019-08-07 16:26] LABS: Ferritin 203 ng/mL (8-252); Iron 21 ug/dL (50-170); Iron Binding Capacity,Total 249 ug/dL (250-450); PERCENT IRON SATURATION 8.4 % (15.0-55.0)
[2019-08-07 16:42] LABS: Vitamin B12 748 pg/mL (211-911)
[2019-08-07 16:59] LABS: Thyroid Stim Hormone (TSH) 0.98 uIU/mL (0.358-3.74)
[2019-08-07] MEDS: 0.9% NaCl Peripheral Flush Adult/Peds IV (17:02)
[2019-08-07] MEDS: Acetaminophen 500 MG Tablet 1000 MG PO (21:17)
[2019-08-07] MEDS: Lisinopril 10 MG Tablet PO (21:17)
[2019-08-08] VITALS (7 sets, daily range): BP systolic 129–171; BP diastolic 59–77; PULSE 69–87; RESP 16–18; TEMP 36.2–37.1; O2SAT 100
[2019-08-08] MEDS: traMADol 50 MG Tablet 25 MG PO (01:58)
[2019-08-08 04:59] LABS: Hematocrit 29.8 % (37-47); Hemoglobin 9.4 g/dL (12.0-15.0); Mean Corp Hgb Conc 31.5 g/dL (32-36); Mean Platelet Vol. 9.8 fl (6.2-12.0); Platelet Count 316 K/mm3 (150-450); RBC Distribution Width SD 35.3 fl (35.1-43.9); Red Blood Count 3.92 M/mm3 (4.2-5.4); White Blood Count 6.3 K/mm3 (4.4-11.0)
[2019-08-08 05:21] LABS: Anion Gap 8 (5-15); BUN 5 mg/dL (7-18); BUN/Creat Ratio 12.2 RATIO (10-20); Calcium,Total 8.7 mg/dL (8.5-10.1); Chloride 106 mmol/L (98-107); Creatinine, Serum 0.41 mg/dL (0.55-1.02); EST Glomerular Filtration Rate 159 mL/min (>60); Est Glom Filt Rate - Afr Amer 192 mL/min (>60); Estimated Creatinine Clearance 33.64 ml/min; Glucose 122 mg/dL (74-106); Potassium 3.6 mmol/L (3.5-5.1); Sodium Level 141 mmol/L (136-145)
[2019-08-08] MEDS: Acetaminophen 500 MG Tablet 1000 MG PO ×2 (06:24→13:21)
[2019-08-08 07:59] LABS: Hemoglobin A1c 5.9 % (4.2-6.3)
[2019-08-08] MEDS: 0.9% Normal Saline 1,000 ML 100 ML IV (08:08)
[2019-08-08] MEDS: Venlafaxine XR 150 MG Capsule PO (09:15)
[2019-08-08] MEDS: Lisinopril 10 MG Tablet PO (09:15)
[2019-08-08] MEDS: amLODIPine 2.5 MG Tablet PO (09:15)
[2019-08-08] MEDS: Magnesium Oxide 400 MG Tablet PO (09:15)
[2019-08-08] MEDS: Docusate Sodium 100 MG Capsule PO (09:15)
--- NOTE | 2019-08-08 11:17 | CASEMGMT ---
RN CM Assessment Introduced role of RN CM to patient.? Patient is alert, oriented and able?to participate in RN CM Assessment. ?Patient slightly confused to timing of fall and when she was admitted to this hospital- reoriented. Appeared oriented and accurate with all other information provided for assessment. Care providers, pharmacy, and demographics verified. Presentation: 1 week s/p Neck Surgery at [facility]. Presented with syncopal episode that was witnessed by her . Admit Dx: Syncope Re-Admit: No Barriers/Issues: Patient became tearful during assessment when discussing goals. 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 States that she has a 12yo dog at home that is on hospice and requiring injections. Has a good family support system as her was born and raised here and one of the oldest out of 11 siblings. States that her 's current health is capable to care for himself. Tissues provided and provided emotional support. This freelance copywriter was able to relate and appeared information provided was of accuracy as her son Jhonathan lives in area this freelance copywriter is familiar with and states Jhonathan's (patient Dtr-in-law) is a ER Nurse at hospital in that area. PCP: Flavio Diaz Specialists: Spinal Surg- Dr Dutton at [facility], Neuro at [facility]- has not seen yet. Preferred Pharmacy: [email or web address]. Maintenance Medication-gets online. Insurance: MCR A&B, WPS for Life Rx Benefit:?Yes, [employer] ?LNOK: Nickolas Solis LW/HPOA: Yes both, aware not on file at [facility]. HPOA- Nickolas Brooks Living Arrangements:?Lives with her and animals in a 3 story home. Bedroom on set up. 2 steps to enter front of house which they do not access. No steps to enter the back of house. ADL?s: Independent with ADLs, has a cane that she is currently using since surgery, otherwise she was Independent with ambulation prior to that. Transportation: Patient reports drove self until July 04, 2019, states her has been doing the driving since and denies any transportation issues. DME: Cane HHC: None SNF: None Goal: Home with Outpatient PT-states was supposed to have this after her surgery as part of the plan. Denies any questions, concerns or issues with DC planning at this time. Aware CM remains available for any emerging needs. DC PLAN: Home with Outpatient PT. Rae Wyatt RNCM
--- NOTE | 2019-08-08 14:44 | CASEMGMT ---
Patient is tearful in the room. She has her dog with her as her dog is currently on Hospice and close to dying. SW met with patient introduced self and role at [facility]. SW provided emotional support. Lisa BALL
--- NOTE | 2019-08-08 15:03 | DCINST_ITS ---
- Discharge Diagnoses Current Active Problems: Current Active and Chronic Problems Syncope and collapse (Acute) Closed head injury (Acute) Anemia (Acute) You will use the following diet at home:: Other - No restrictions-resume previous diet Your food should be the consistency of: Regular Your liquids should be the consistency of: Regular/Thin Discharge Activity: Return to Normal Activity Call your doctor if you observe: Fever of 101 or Higher, Shortness of breath, Dizziness, Fainting spells, Swelling in the ankles, Chest pain, Uncontrolled pain Additional Instructions: As long as you are taking Robaxin and Tramadol you should NOT drink alcohol. You were having hallucinations due to the combined effects of Alcohol, narcotics and muscle relaxers. You passed out because you were dehydrated. I am stopping the HCTZ which is a diuretic. Make sure to drink plenty of water......enough to keep your urine a pale yellow. Allergies/Adverse Reactions: Allergies No Known Allergies Allergy (Verified 01/17/15 15:52) Medications to take at Discharge Amlodipine Besylate 2.5 mg PO DAILY 07/04/19 Benazepril HCl 10 mg PO BID 07/04/19 Magnesium 400 mg PO DAILY 07/04/19 Venlafaxine HCl [Venlafaxine HCl ER] 150 mg PO DAILY 07/04/19 Cholecalciferol (Vitamin D3) [Vitamin D3] 2,000 unit PO DAILY 08/06/19 Docusate Sodium [Colace] 100 mg PO BID 08/06/19 Thiamine Mononitrate (Vit B1) [Vitamin B-1] 500 mg PO 08/07/19 Methocarbamol [Robaxin] 500 mg PO 4X/DAY PRN PRN #0 08/08/19 traMADol [Ultram] 25 mg PO Q8H PRN PRN #14 tab 08/08/19 The following prescriptions were given: traMADol [Ultram] 25 mg PO Q8H PRN PRN #14 tab PRN Reason: Pain Score 1-5/10 Prescription Printed Primary Care Physician: Flavio Diaz III, MD [Primary Care Provider] - Please follow up with your Primary Care Physician in: next week Test Results: Test results from this visit will be discussed in further detail at your follow- up appointment, if applicable. Proposed Discharge Date: 08/08/19
--- NOTE | 2019-08-08 15:16 | DS.PCM_ITS ---
Discharge Date and Diagnosis - Problem List Patient Problems: Active and Suspected Problems Hyperglycemia (Acute) Hyponatremia (Acute) Dehydration (Acute) Toxic encephalopathy (Acute) Hallucinations, visual (Acute) Date of Admission: 08/06/19 Date of Discharge: 08/08/19 - Primary Discharge Diagnosis Active and Suspected Problems Syncope and collapse (Acute) - due to dehydration suspected orthostatic hypotension Hallucinations, visual (Acute) - due to toxic encephalopathy Toxic encephalopathy (Acute) due to the combined effects of Oxycodone, Robaxin and EtOH-resolved Dehydration (Acute) - due to HCTZ-resolved Hyponatremia (Acute)-resolved Hyperglycemia (Acute) - due to stress, HGBA1C is 5.9 Closed head injury (Acute) - Secondary Discharge Diagnosis Chronic Problems Microcytic anemia (Chronic) Cervical myelopathy with cervical radiculopathy (Chronic) S/P recent posterior cervical fusion of C3-C4 at the [facility] Heavy alcohol use (Chronic) 1/2 or more of wine a day Dementia (Chronic) Hypertension (Chronic) Depression (Chronic) Hospital Course and Treatment Imaging Results: Clinical Impression(s) from Imaging Studies Brain CT 08/06/19 20:31 IMPRESSION: Chronic involutional changes of the brain. No hemorrhage. Electronically Signed: Joseluis Rolon MD at 21:35 EDT , Service support , Cervical Spine CT 08/06/19 20:31 IMPRESSION: Postoperative and degenerative changes. No acute fracture seen. Electronically Signed: Joseluis Rolon MD at 21:47 EDT , Service support , Chest X-Ray 08/06/19 20:31 IMPRESSION: Degenerative changes, as described above. No demonstrated acute cardiopulmonary process. Electronically Signed: Joseluis Rolon MD at 20:52 EDT , Service support , Chest CTA 08/06/19 21:55 IMPRESSION: CTA chest examination, without a demonstrated pulmonary embolism or arterial dissection. Electronically Signed: Joseluis Rolon MD at 23:00 EDT , Service support , Laboratory Results - last 24 hr 08/08/19 08/08/19 08/08/19 04:24 04:24 04:24 WBC 6.3 RBC 3.92 L Hgb 9.4 L Hct 29.8 L MCV 76.0 L MCH 24.0 L MCHC 31.5 L RDW Std Deviation 35.3 RDW Coeff of Jennifer 13.0 Plt Count 316 MPV 9.8 Sodium 141 Potassium 3.6 Chloride 106 Carbon Dioxide 27.0 Anion Gap 8 BUN 5 L Creatinine 0.41 L Estim Creat Clear Calc 33.64 Est GFR (MDRD) Af Amer 192 Est GFR (MDRD) Non-Af 159 BUN/Creatinine Ratio 12.2 Glucose 122 H Hemoglobin A1c 5.9 Calcium 8.7 none Operations: None Procedures: 2-D Echocardiogram - Interpretation Summary Left ventricular systolic function is hyperdynamic. Diastolic function is indeterminate. Aortic sclerosis, no stenosis. The estimated ejection fraction is >70 %. Summary of Care Provided: The pt is a 79-year-old female with a past medical history of depression, hypertension, possible dementia (per the pt), heavy alcohol intake and recent posterior cervical fusion of C3-C4 at the [facility]. She was discharged 5 days prior to presenting to the [facility] ED. She presented to the emergency room at [facility] on 08/06/2019 following a syncopal episode at home. She struck her head fairly hard. Her did not observe any seizure activity and she recovered fairly quickly. Vital signs at presentation to the emergency department were temperature 98.2, pulse rate 83, blood pressure 124/62, respiratory rate 16 and she was 98% saturated on room air. White blood cell count was 7.6 with 82% neutrophils. Hemoglobin was 9.5 with an MCV of 75.3. Platelets were within normal limits. Sodium was low at 130 and the potassium was low at 3.4. BUN was 20 and the creatinine was 0.8. Random blood sugar was elevated at 155. A hemoglobin A1c was 5.9. Troponin was less than 0.015. UA had 0 WBCs. D-dimer was increased at 2.2, more likely than not rel ated to recent surgery. A CTA of the chest was done that showed no pulmonary emboli. CT of the cervical spine showed postoperative and degenerative changes with no acute fracture. Brain CT showed chronic involutional changes only. Chest x-ray had no pleural effusions, infiltrates or pulmonary vascular congestion. EKG was normal. She was admitted to a monitored bed on PCU. Telemetry showed normal sinus rhythm with no significant ectopy. She was having visual hallucinations and confusion. She has had confusion in the past which is episodic per her . The visual hallucinations are new since discharge from the [facility]. Her went home and counted her pills. She was discharged from the [facility] with RX for 70 Oxycodone and 30 Robaxin. She had taken #30 Oxycodone and #10 robaxin since [place] and she told me that she drinks a 1/2 bottle of wine daily because she is sad. She denied any history of schizophrenia or bipolar disorder. Narcotics and Robaxin were discontinued and she was started on Ultram 25 mg p.o. every 6 hours as needed pain > 5. She was placed on scheduled Tylenol. On 08/08/2019 she denied any hallucinations. She was alert and she was oriented x3. She was quite tearful as her small dog was brought to her hospital room and the dog is apparently dying and is having trouble breathing. She was otherwise appropriate. She was afebrile for the duration of her hospital stay and she was also hemodynamically stable with a pulse ox of 100% on room air. Following hydration the sodium increased from 130 at admission to 141 at discharge. The BUN decreased from 20/0.8 to 5/0.41 prior to discharge. Potassium was 3.6. Iron studies were checked in the hospital and the serum iron was low at 21 with a low iron saturation of 8.4. TIBC was 249 and the ferritin was 203 however ferritin is an acute phase reactant and she just had surgery so I suspect that she is truly iron deficient. She would need a bone marrow to prove she is iron deficient with a ferritin > 200 however, it may be prudent just to place her on an iron supplement and recheck her iron studies in 4 to 6 weeks. She will follow-up with Dr. Flavio Diaz iii in the office next week. She also has a follow-up appointment with the surgeon. She was discharged home with a prescription for tramadol 50 mg tablets and instructed to take 1/2 tablet every 8 hours as needed for pain greater than 5. She will take the Robaxin no greater than 2 times a day and she will avoid all alcohol until she is off pain medication and muscle relaxers. HCTZ was discontinued to prevent recurrent hyponatremia, dehydration and syncope. GENERAL: alert, appropriate, Cooperative, tearful ORAL: moist mucosa, no mucosal lesions NECK: No JVD, trachea midline, she is in a hard cervical collar LUNGS: CTA, symmetric chest expansion HEART: RRR, Normal S1 and S2, no rub, no gallop murmur ABDOMEN: soft, NT, ND, BS present, no guarding with palpation EXTREMITIES: no edema, no cyanosis, no calf tenderness SKIN: No rashes, no breakdown NEUROLOGIC: Cranial nerves II through XII are grossly intact. She has weakness in the left upper extremity which started prior to the cervical fusion. She is unable to lift her left arm up to shoulder height and has poor biceps and poor triceps strength. She has good interventional neuroradiologist strength on the left. Complains of numbness in both hands. She has 5/5 strength in all other extremities. PSYCH: pleasant This note was generated with [employer] dictation software. It may contain incorrect words, spelling, and punctuation that were not noted in checking the note before signing. Patient Problems: Active and Suspected Problems Hyperglycemia (Acute) Hyponatremia (Acute) Dehydration (Acute) Toxic encephalopathy (Acute) Hallucinations, visual (Acute) - Physical Exam Vital Signs Temp Pulse Resp BP Pulse Ox 97.2 F L 85 16 145/59 H 100 08/08/19 09:10 08/08/19 11:00 08/08/19 09:10 08/08/19 09:10 08/08/19 09:10 Oxygen Delivery Method Room Air Weight: 103 lb Body Mass Index (BMI) 20.7 Finger Stick Blood Glucose 153 Orthostatic Vital Signs Start: 08/07/19 05:28 Freq: q24h Status: Active Protocol: Activity Type Activity Date Activity User E-Sign Co-Sign Detail Recorded Client Recorded Date Recorded By Document 08/08/19 06:26 [email or web address] [id number] 08/08/19 06:32 [email or web address] 08/08/19 06:26 Orthostatic Vitals Standing -Blood Pressure (90/60-120/80 mm Hg) 129/74 H -Extremity Use Right Arm -Pulse Rate (60-100 beats/min) 78 Sitting -Blood Pressure (90/60-120/80 mm Hg) 162/77 H -Extremity Use Right Arm -Pulse Rate (60-100 beats/min) 80 Lying -Blood Pressure (90/60-120/80 mm Hg) 171/74 H -Extremity Use Right Arm -Pulse Rate (60-100 beats/min) 80 Intake and Output for Last 24 Hours 08/06/19 08/07/19 08/08/19 23:59 23:59 23:59 Intake Total 1000 / 1000 3185 / 3185 1833.33 / 1833.33 Balance 1000 / 1000 3185 / 3185 1833.33 / 1833.33 Laboratory Tests Past 24 Hrs 08/07/19 08/07/19 08/07/19 06:00 06:00 06:00 WBC RBC Hgb Hct MCV MCH MCHC RDW Std Deviation RDW Coeff of Jennifer Plt Count MPV Sodium Potassium Chloride Carbon Dioxide Anion Gap BUN Creatinine Estim Creat Clear Calc Est GFR (MDRD) Af Amer Est GFR (MDRD) Non-Af BUN/Creatinine Ratio Glucose Hemoglobin A1c Calcium Magnesium 2.0 Iron 21 L TIBC 249 L Iron Saturation 8.4 L Ferritin 203 Vitamin B12 748 Folate 17.00 TSH 0.98 08/08/19 08/08/19 08/08/19 04:24 04:24 04:24 WBC 6.3 RBC 3.92 L Hgb 9.4 L Hct 29.8 L MCV 76.0 L MCH 24.0 L MCHC 31.5 L RDW Std Deviation 35.3 RDW Coeff of Jennifer 13.0 Plt Count 316 MPV 9.8 Sodium 141 Potassium 3.6 Chloride 106 Carbon Dioxide 27.0 Anion Gap 8 BUN 5 L Creatinine 0.41 L Estim Creat Clear Calc 33.64 Est GFR (MDRD) Af Amer 192 Est GFR (MDRD) Non-Af 159 BUN/Creatinine Ratio 12.2 Glucose 122 H Hemoglobin A1c 5.9 Calcium 8.7 Magnesium Iron TIBC Iron Saturation Ferritin Vitamin B12 Folate TSH Discharge Activity: Return to Normal Activity Call your doctor if you observe: Fever of 101 or Higher, Shortness of breath, Dizziness, Fainting spells, Swelling in the ankles, Chest pain, Uncontrolled pain Home Medications: Medications to take at Discharge Amlodipine Besylate 2.5 mg PO DAILY 07/04/19 Benazepril HCl 10 mg PO BID 07/04/19 Magnesium 400 mg PO DAILY 07/04/19 Venlafaxine HCl [Venlafaxine HCl ER] 150 mg PO DAILY 07/04/19 Cholecalciferol (Vitamin D3) [Vitamin D3] 2,000 unit PO DAILY 08/06/19 Docusate Sodium [Colace] 100 mg PO BID 08/06/19 Thiamine Mononitrate (Vit B1) [Vitamin B-1] 500 mg PO 08/07/19 Methocarbamol [Robaxin] 500 mg PO 4X/DAY PRN PRN #0 08/08/19 traMADol [Ultram] 25 mg PO Q8H PRN PRN #14 tab 08/08/19 Following Prescrptions Were Given to Patient: traMADol [Ultram] 25 mg PO Q8H PRN PRN #14 tab PRN Reason: Pain Score 1-5/10 Prescription Printed Primary Care Physician: Flavio Diaz III, MD [Primary Care Provider] - Please follow up with your Primary Care Physician in: next week Disposition: Home Minutes spent on discharge:: 35 Patient Condition:: Stable Medical Necessity - Tobacco Use Smoking Status: Never smoker Tobacco Use: Non-smoker Meaningful Use Info Meaningful Use Diagnoses (Choose all that apply): None applicable Code Visit Inpatient E&M: 80378 Disch Hosp
== END 2019-08-08 17:04 | disposition home or self-care (01) | DRG 640 ==
LOC: ED 23:29 → PCU 23:57
PROVIDERS: Internal Medicine; Nurse Practitioner Family; Admitting Provider Family Medicine; Emergency Provider Emergency Medicine; Family Provider Family Medicine; PCP Family Medicine; Visit Provider Family Medicine
DX: E86.0 Dehydration (principal); G92 Toxic encephalopathy; M50.01 Cervical disc disorder with myelopathy, high cervical region; T50.2X5A Adverse effect of carbonic-anhydrase inhibitors, benzothiadiazides and other diuretics, initial encounter; I95.1 Orthostatic hypotension; E87.1 Hypo-osmolality and hyponatremia; T40.2X1A Poisoning by other opioids, accidental (unintentional), initial encounter; T42.8X1A Poisoning by antiparkinsonism drugs and other central muscle-tone depressants, accidental (unintentional), initial encounter; R44.1 Visual hallucinations; R73.9 Hyperglycemia, unspecified; F43.9 Reaction to severe stress, unspecified; D50.9 Iron deficiency anemia, unspecified; M50.11 Cervical disc disorder with radiculopathy, high cervical region; F32.9 Major depressive disorder, single episode, unspecified; I10 Essential (primary) hypertension; F03.90 Unspecified dementia, unspecified severity, without behavioral disturbance, psychotic disturbance, mood disturbance, and anxiety; S09.90XA Unspecified injury of head, initial encounter; W18.39XA Other fall on same level, initial encounter; Z72.89 Other problems related to lifestyle; Z98.1 Arthrodesis status; Z79.899 Other long term (current) drug therapy
CPT/HCPCS: 36415; 70450; 71045; 71275; 72125; 80048; 80053; 81001; 82607; 82728; 82746; 82962; 83036; 83540; 83550; 83735; 84443; 84484; 85025; 85027; 85379; 93005; 93306; 97161; 97166; 97530; 99285; J7030; Q9967; A4216

== ENCOUNTER 2020-12-02 12:58 | Outpatient (RCR) | payer MEDICARE, OTHER, SELFPAY ==
[2019-08-07 00:25] VITALS: BMI 20.7
== END 2020-12-02 23:59 ==
LOC: IMMUN 12:58
PROVIDERS: PCP Family Medicine; Visit Provider Family Medicine
DX: Z23 Encounter for immunization (principal)
CPT/HCPCS: 0011A; 0012A; 91301